=== PATIENT | male | born 1985 | race Caucasian/White ===

== ENCOUNTER 2016-10-30 15:24 | Emergency (ER) | payer BC ==
--- NOTE | 2016-10-30 16:50 | ERPHSYRPT ---
- History of Present Illness Time Seen by Provider: 10/30/16 16:48 Historian: patient, family Exam Limitations: no limitations Patient Subjective Stated Complaint: PT REPORTS LEFT FLANK PAIN BEGINNING A FEW HRS AGO-DENIES N/V/D-REPORTS BOWELS MOVED WITH NO DIFFICUTLY TODAY-DENIES FEVER- DENIES DIFFICUTLY WITH URINATION Triage Nursing Assessment: PT PINK WARM ET SBH-GLIOX-TYR NONTENDER-BOWEL SOUNDS PRESENT Physician History: The patient is a 31-year-old male with his complaining of a sudden onset of left abdominal left flank pain while at work. The pain was very intense but now it is let up. He denies nausea or vomiting. He had a bowel movement about that same time the pain occurred. His past medical history is unremarkable. Timing/Duration: today, hour(s) (5) Activities at Onset: none Quality: sharpness Abdominal Pain Onset Location: LLQ, flank Pain Radiation: no radiation Severity of Pain-Max: severe Severity of Pain-Current: moderate Modifying Factors: Improves With: nothing Associated Symptoms: denies symptoms Previous symptoms: no prior history Allergies/Adverse Reactions: No Known Drug Allergies Allergy (Unverified 10/30/16 15:38) Home Medications: No Home Meds 1 ea MC UD 10/30/16 [History] Hx Tetanus, Diphtheria Vaccination/Date Given: No Hx Influenza Vaccination/Date Given: No Hx Pneumococcal Vaccination/Date Given: No Immunizations Up to Date: Yes - Review of Systems Constitutional: No Fever, No Chills Eyes: No Symptoms Ears, Nose, & Throat: No Symptoms Respiratory: No Cough, No Dyspnea Cardiac: No Chest Pain, No Edema, No Syncope Abdominal/Gastrointestinal: Abdominal Pain, No Nausea, No Vomiting, No Diarrhea Genitourinary Symptoms: No Dysuria Musculoskeletal: No Back Pain, No Neck Pain Skin: No Rash Neurological: No Dizziness, No Focal Weakness, No Sensory Changes Psychological: No Symptoms Endocrine: No Symptoms Hematologic/Lymphatic: No Symptoms Immunological/Allergic: No Symptoms All Other Systems: Reviewed and Negative - Past Medical History Pertinent Past Medical History: No - Past Surgical History Past Surgical History: No - Social History Smoking Status: Never smoker Drug Use: none Patient Lives Alone: No - Nursing Vital Signs Nursing Vital Signs: Initial Vital Signs Temperature 97.6 F Temperature Source Oral Pulse Rate 88 Respiratory Rate 16 Blood Pressure [Right Arm] 127/67 Pain Intensity 7 - Physical Exam General Appearance: moderate distress Eye Exam: PERRL/EOMI, eyes nml inspection Ears, Nose, Throat Exam: normal ENT inspection, pharynx normal, moist mucous membranes Neck Exam: normal inspection, non-tender, supple, full range of motion Respiratory Exam: normal breath sounds, lungs clear, No respiratory distress Cardiovascular Exam: regular rate/rhythm, normal heart sounds Gastrointestinal/Abdomen Exam: tenderness (LLQ) Rectal Exam: not done Back Exam: normal inspection, normal range of motion, No CVA tenderness, No vertebral tenderness Extremity Exam: normal inspection, normal range of motion, pelvis stable Neurologic Exam: alert, oriented x 3, cooperative, normal mood/affect, nml cerebellar function, sensation nml, No motor deficits Skin Exam: normal color, warm, dry SpO2 Interpretation: normal SpO2: 100 Oxygen Delivery: Room Air Ordered Tests: Active Orders 24 hr Category Date Time Status IV Insertion STAT Care 10/30/16 16:51 Active CBC W DIFF Stat Lab 10/30/16 15:50 Completed CMP Stat Lab 10/30/16 15:50 Completed CULTURE,URINE Stat Lab 10/30/16 15:50 Received LIPASE Stat Lab 10/30/16 15:50 Completed UA W/ MICROSCOPIC Stat Lab 10/30/16 15:50 Completed Medication Summary Discontinued Medications Generic Name Dose Route Start Last Admin Trade Name Lucianq PRN Reason Stop Dose Admin Sodium Chloride 1,000 mls @ 999 mls/hr 10/30/16 16:51 10/30/16 17:38 Sodium Chloride 0.9% 1000 Ml IV 10/30/16 17:51 999 mls/hr .Q1H1M STA Administration Sodium Chloride Confirm 10/30/16 17:12 Sodium Chloride 0.9% 1000 Ml Administered 10/30/16 17:13 Dose 1,000 mls @ ud .ROUTE .STK-MED ONE Ketorolac Tromethamine 30 mg 10/30/16 16:51 10/30/16 17:38 Toradol 30 Mg Injection IV 10/30/16 16:52 30 mg STAT ONE Administration Ketorolac Tromethamine Confirm 10/30/16 17:12 Toradol 30 Mg Injection Administered 10/30/16 17:13 Dose 30 mg .ROUTE .STK-MED ONE Potassium Chloride 40 meq 10/30/16 17:11 10/30/16 18:03 Klor Con 10 Meq PO 10/30/16 17:12 40 meq STAT ONE Administration Potassium Chloride Confirm 10/30/16 17:21 Klor Con 10 Meq Administered 10/30/16 17:22 Dose 40 meq PO .STK-MED ONE Tamsulosin HCl 0.4 mg 10/30/16 16:53 10/30/16 17:37 Flomax 0.4 Mg PO 10/30/16 16:54 0.4 mg DAILY STA Administration Tamsulosin HCl Confirm 10/30/16 17:12 Flomax 0.4 Mg Administered 10/30/16 17:13 Dose 0.4 mg .ROUTE .STK-MED ONE Lab/Rad Data: Laboratory Result Diagrams 10/30/16 15:50 10/30/16 15:50 Laboratory Results 10/30/16 10/30/16 10/30/16 Range/Units 15:50 15:50 15:50 WBC 11.1 H (4.0-10.5) K/mm3 RBC 5.31 (4.1-5.6) M/mm3 Hgb 16.2 (12.5-18.0) gm/dl Hct 45.0 (42-50) % MCV 84.7 (78-100) fl MCH 30.5 (26-32) pg MCHC 36.0 (32-36) g/dl RDW 12.4 (11.5-14.0) % Plt Count 257 (150-450) K/mm3 MPV 10.8 H (6-9.5) fl Gran % 79.6 H (36.0-66.0) % Lymphocytes % 11.6 L (24.0-44.0) % Monocytes % 8.2 (0.0-12.0) % Eosinophils % 0.1 (0.00-5.0) % Basophils % 0.5 (0.0-0.4) % Basophils # 0.05 (0-0.4) Sodium 142 (136-145) mEq/L Potassium 3.1 L (3.5-5.1) mEq/L Chloride 103 (98-107) mEq/L Carbon Dioxide 23.5 (21-32) mEq/L Anion Gap 18.1 H (5-15) MEQ/L BUN 14 (9-20) mg/dL Creatinine 1.31 H (0.55-1.30) mg/dl Estimated GFR > 60 ML/MIN Glucose 153 H (70-110) MG/DL Calcium 10.0 (8.5-10.1) mg/dL Total Bilirubin 0.80 (0.2-1.0) mg/dL AST 17 (15-37) U/L ALT 23 (12-78) U/L Alkaline Phosphatase 80 (46-116) U/L Serum Total Protein 7.7 (6.4-8.2) gm/dL Albumin 4.7 (3.4-5.0) g/dL Lipase 102 (73-393) U/L Ur Collection Type CLEAN CATCH Urine Color YELLOW (YELLOW) Urine Appearance CLEAR (CLEAR) Urine pH 7.0 (5-6) Ur Specific [place] 1.025 (1.005-1.025) Urine Protein 30 (Negative) Urine Glucose (UA) NEGATIVE (NEGATIVE) mg/dL Urine Ketones >=160 (NEGATIVE) Urine Nitrite NEGATIVE (NEGATIVE) Urine Bilirubin NEGATIVE (NEGATIVE) Urine Urobilinogen 1 (0-1) mg/dL Urine WBC (Auto) NEGATIVE (NEGATIVE) Urine RBC (Auto) LARGE (0-5) Yuri/ul Urine Microscopic RBC 25-50 (0-2) /HPF Urine Microscopic WBC 2-5 (0-5) /HPF Ur Epithelial Cells RARE (FEW) /HPF Urine Bacteria FEW (NEGATIVE) /HPF Urine Mucus SLIGHT (NEGATIVE) /HPF Specimen Received [id number] - Progress Progress: improved Progress Note: 10/30/16 17:20 The patient urinated a significant amount just a few moments ago and he saw what he thought was of blood covered small stone in the bottom of the toilet. He is now completely pain-free. - Departure Time of Disposition: 18:26 Departure Disposition: Home Clinical Impression: Kidney stone, Hypokalemia Condition: Stable Critical Care Time: No Additional Instructions: You had a kidney stone that you passed while you were in the ER. Stay hydrated. Return to the ER if the condition returns.
[2016-10-30] MEDS ORDERED: TORAdol 30 mg Injection IV ONE (16:51)
[2016-10-30] MEDS ORDERED: Sodium Chloride 0.9% 1000 ML 1,000 ML IV STA (16:51)
[2016-10-30] MEDS ORDERED: Flomax 0.4 MG PO STA (16:53)
[2016-10-30 16:59] LABS: BASOPHIL % 0.5 % (0.0-0.4); Eosinophil % 0.1 % (0.00-5.0); Granulocytes % 79.6 % (36.0-66.0); Lymphocytes % 11.6 % (24.0-44.0); Mean Cell Volume 84.7 fl (78-100); Mean Corpuscular Hemoglobin 30.5 pg (26-32); Mean Platelet Volume 10.8 fl (6-9.5); Monocytes % 8.2 % (0.0-12.0); Platelet Count 257 K/mm3 (150-450); Red Blood Count 5.31 M/mm3 (4.1-5.6); Red Cell Distribution Width 12.4 % (11.5-14.0); White Blood Count 11.1 K/mm3 (4.0-10.5)
[2016-10-30 17:08] LABS: ALBUMIN 4.7 g/dL (3.4-5.0); ALKALINE PHOSPHATASE 80 U/L (46-116); ANION GAP 18.1 MEQ/L (5-15); BLOOD UREA NITROGEN 14 mg/dL (9-20); CHLORIDE 103 mEq/L (98-107); Carbon Dioxide 23.5 mEq/L (21-32); Glucose 153 MG/DL (70-110); LIPASE 102 U/L (73-393); Potassium 3.1 mEq/L (3.5-5.1); SGOT/AST 17 U/L (15-37); SGPT/ALT 23 U/L (12-78); SODIUM 142 mEq/L (136-145); Total Protein 7.7 gm/dL (6.4-8.2)
[2016-10-30] MEDS ORDERED: Klor Con 10 MEQ PO ONE ×2 (17:11→17:21)
[2016-10-30] MEDS ORDERED: TORAdol 30 mg Injection ONE (17:12)
[2016-10-30] MEDS ORDERED: Flomax 0.4 MG ONE (17:12)
[2016-10-30] MEDS ORDERED: Sodium Chloride 0.9% 1000 ML 1,000 ML ONE (17:12)
[2016-10-30 18:13] LABS: ADD URINE CULTURE? YES (NO); Bacteria FEW /HPF (NEGATIVE); COMPLETE URINE MICROSCOPIC? YES; Collection Type CLEAN CATCH; Epithelial Cells RARE /HPF (FEW); Mucus SLIGHT /HPF (NEGATIVE)
[2016-10-30 18:16] VITALS: BP 127/67; PULSE 88
[2016-10-30 18:28] VITALS: O2SAT 100
== END 2016-10-30 18:33 | disposition home or self-care (01) ==
LOC: ED 15:24
DX: N20.0 Calculus of kidney (principal); E87.6 Hypokalemia; R10.9 Unspecified abdominal pain
CPT/HCPCS: 36000; 36415; 80053; 81000; 83690; 85025; 87086; 96360; 99284; J1885; A9270-GY

== ENCOUNTER 2017-05-10 02:15 | Emergency (ER) | payer BC ==
--- NOTE | 2017-05-10 02:38 | ERPHSYRPT ---
- History of Present Illness Time Seen by Provider: 05/10/17 02:32 Historian: patient Exam Limitations: no limitations Patient Subjective Stated Complaint: Chest Pain Triage Nursing Assessment: Pt presents to the ED with complaints of chest pain, onset at 00:30 when he was sitting at work. Pt states he was opperating a machine at work when the pain began. Pt denies hx of complaint. PT states he became diaphoretic shortly after onset as well as SOB. 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 States pain is new onset, sharp, intermittent lasting approximately 2-3 minutes then resolving spontaneously. Patient notes that this occurred 4 to 5 times. Patient also had diaphoresis and nausea. Patient denies any shortness of breath, palpitation, dizziness or weakness. Patient has been doing well otherwise, without cough, fever, chills, vomiting, diarrhea or abdominal pain. Patient denies any tobacco, drugs or alcohol use. Patient denies any family history of coronary disease. Timing/Duration: today Activities at Onset: rest Quality: sharpness Location: substernal Chest Pain Radiation: no radiation Severity of Pain-Max: mild Severity of Pain-Current: none Modifying Factors: Improves With: nothing Associated Symptoms: nausea, diaphoresis, No vomiting, No palpitations, No heartburn, No abdominal pain, No shortness of breath, No cough, No fatigue, No weakness, No syncope, No headache, No dizziness Nitro Today/Relief: no nitro taken today Aspirin Treatment Today: no aspirin today Allergies/Adverse Reactions: No Known Drug Allergies Allergy (Unverified 10/30/16 15:38) Home Medications: No Home Meds [No Home Meds] 1 [facility] 10/30/16 [History] Hx Tetanus, Diphtheria Vaccination/Date Given: Yes Hx Influenza Vaccination/Date Given: No Hx Pneumococcal Vaccination/Date Given: No Immunizations Up to Date: No - Review of Systems Constitutional: No Fever, No Chills Eyes: No Symptoms Ears, Nose, & Throat: No Symptoms Respiratory: No Cough, No Dyspnea Cardiac: Chest Pain, No Edema, No Syncope Abdominal/Gastrointestinal: No Abdominal Pain, No Nausea, No Vomiting, No Diarrhea Genitourinary Symptoms: No Dysuria Musculoskeletal: No Back Pain, No Neck Pain Skin: No Rash Neurological: No Dizziness, No Focal Weakness, No Sensory Changes Psychological: No Symptoms Endocrine: No Symptoms All Other Systems: Reviewed and Negative - Past Medical History Pertinent Past Medical History: No Neurological History: No Pertinent History ENT History: No Pertinent History Cardiac History: No Pertinent History Respiratory History: No Pertinent History Endocrine Medical History: No Pertinent History Musculoskeletal History: No Pertinent History GI Medical History: No Pertinent History History: No Pertinent History Psycho-Social History: No Pertinent History Male Reproductive Disorders: No Pertinent History - Past Surgical History Past Surgical History: No Neuro Surgical History: No Pertinent History Cardiac: No Pertinent History Respiratory: No Pertinent History Gastrointestinal: No Pertinent History Genitourinary: No Pertinent History Musculoskeletal: No Pertinent History Male Surgical History: No Pertinent History - Social History Smoking Status: Never smoker Exposure to second hand smoke: No Drug Use: none Patient Lives Alone: No - Nursing Vital Signs Nursing Vital Signs: Initial Vital Signs Temperature 97.6 F 05/10/17 02:16 Pulse Rate 79 05/10/17 02:16 Respiratory Rate 13 05/10/17 02:16 Blood Pressure 134/91 05/10/17 02:16 O2 Sat by Pulse Oximetry 99 05/10/17 02:16 Pain Scale Pain Intensity 0 - Physical Exam General Appearance: no apparent distress, alert Eye Exam: PERRL/EOMI, eyes nml inspection Ears, Nose, Throat Exam: normal ENT inspection, moist mucous membranes Neck Exam: normal inspection, non-tender, supple, full range of motion Respiratory Exam: normal breath sounds, lungs clear, No respiratory distress Cardiovascular Exam: regular rate/rhythm, normal heart sounds Gastrointestinal/Abdomen Exam: soft, No tenderness, No mass Back Exam: normal inspection, No CVA tenderness, No vertebral tenderness Extremity Exam: normal inspection, normal range of motion Neurologic Exam: alert, oriented x 3, cooperative, normal mood/affect, sensation nml, No motor deficits Skin Exam: normal color, warm, dry SpO2: 99 Oxygen Delivery: Room Air - Course Nursing assessment & vital signs reviewed: Yes EKG Interpreted by Me: RATE (79), Sinus Rhythm, NORMAL AXIS, Non-specific ST Changes, Other (PVC noted, RVH present on EKG) Ordered Tests: Active Orders 24 hr Category Date Time Status Electrician Third STAT Care 05/10/17 02:25 Active Clean Catch Urine Specimen STAT Care 05/10/17 02:24 Active EKG-ER Only STAT Care 05/10/17 02:24 Active IV Insertion STAT Care 05/10/17 02:24 Active CHEST 2 VIEWS (PA AND LAT) Stat Exams 05/10/17 02:24 Taken BMP Stat Lab 05/10/17 02:37 Completed CBC W DIFF Stat Lab 05/10/17 02:37 Completed CK-Creatinine Phosphokinase Stat Lab 05/10/17 02:37 Completed D-DIMER QUANTITATION Stat Lab 05/10/17 02:37 Completed TROPONIN Q3H Lab 05/10/17 02:57 Completed TROPONIN Q3H Lab 05/10/17 05:14 Completed TROPONIN Q3H Lab 05/10/17 08:30 Ordered TROPONIN Q3H Lab 05/10/17 11:30 Ordered TROPONIN Q3H Lab 05/10/17 14:30 Ordered UA Stat Lab 05/10/17 02:37 Completed Urine Triage Profile Stat Lab 05/10/17 02:37 Completed Medication Summary Generic Name Dose Route Start Last Admin Trade Name Freq PRN Reason Stop Dose Admin Potassium Chloride 40 meq 05/10/17 10:00 05/10/17 03:17 Potassium Chl 40 Meq/30 Ml Oral Solution PO 06/09/17 09:59 Not Given DAILY FIFI Discontinued Medications Generic Name Dose Route Start Last Admin Trade Name Freq PRN Reason Stop Dose Admin Potassium Chloride 40 meq 05/10/17 03:18 05/10/17 03:22 Klor Con 10 Meq PO 05/10/17 03:19 40 meq STAT ONE Administration Potassium Chloride Confirm 05/10/17 03:19 Klor Con 10 Meq Administered 05/10/17 03:20 Dose 40 meq PO .STK-MED ONE Lab/Rad Data: Laboratory Result Diagrams 05/10/17 02:37 05/10/17 02:37 Laboratory Results 05/10/17 05/10/17 05/10/17 Range/Units 05:14 02:57 02:37 WBC (4.0-10.5) K/mm3 RBC (4.1-5.6) M/mm3 Hgb (12.5-18.0) gm/dl Hct (42-50) % MCV (78-100) fl MCH (26-32) pg MCHC (32-36) g/dl RDW (11.5-14.0) % Plt Count (150-450) K/mm3 MPV (6-9.5) fl Gran % (36.0-66.0) % Lymphocytes % (24.0-44.0) % Monocytes % (0.0-12.0) % Eosinophils % (0.00-5.0) % Basophils % (0.0-0.4) % Basophils # (0-0.4) D-Dimer (0-500) ng/mL Sodium (136-145) mEq/L Potassium (3.5-5.1) mEq/L Chloride (98-107) mEq/L Carbon Dioxide (21-32) mEq/L Anion Gap (5-15) MEQ/L BUN (9-20) mg/dL Creatinine (0.55-1.30) mg/dl Estimated GFR ML/MIN Glucose (70-110) MG/DL Calcium (8.5-10.1) mg/dL Creatine Kinase (39-308) U/L Troponin I < 0.017 < 0.017 (0.000-0.056) ng/ml Ur Collection Type VOID Urine Color LT.YELLOW (YELLOW) Urine Appearance CLEAR (CLEAR) Urine pH 7.0 (5-6) Ur Specific [place] 1.005 (1.005-1.025) Urine Protein NEGATIVE (Negative) Urine Ketones NEGATIVE (NEGATIVE) Urine Blood NEGATIVE (0-5) Yuri/ul Urine Nitrite NEGATIVE (NEGATIVE) Urine Bilirubin NEGATIVE (NEGATIVE) Urine Urobilinogen NORMAL (0-1) mg/dL Ur Leukocyte Esterase NEGATIVE (NEGATIVE) Urine Glucose NEGATIVE (NEGATIVE) mg/dL Urine Opiates Level (NEGATIVE) Ur Methadone (NEGATIVE) Urine Barbiturates (NEGATIVE) Ur Phencyclidine (PCP) (NEGATIVE) Urine Amphetamine (NEGATIVE) U Benzodiazepine Level (NEGATIVE) Urine Cocaine (NEGATIVE) Urine Marijuana (THC) (NEGATIVE) Specimen Received 05/10/17 0240 05/10/17 05/10/17 05/10/17 Range/Units 02:37 02:37 02:37 WBC 12.8 H (4.0-10.5) K/mm3 RBC 5.04 (4.1-5.6) M/mm3 Hgb 15.3 (12.5-18.0) gm/dl Hct 43.2 (42-50) % MCV 85.7 (78-100) fl MCH 30.4 (26-32) pg MCHC 35.4 (32-36) g/dl RDW 12.1 (11.5-14.0) % Plt Count 230 (150-450) K/mm3 MPV 10.0 H (6-9.5) fl Gran % 82.2 H (36.0-66.0) % Lymphocytes % 10.7 L (24.0-44.0) % Monocytes % 6.7 (0.0-12.0) % Eosinophils % 0.2 (0.00-5.0) % Basophils % 0.2 (0.0-0.4) % Basophils # 0.03 (0-0.4) D-Dimer < 200.00 (0-500) ng/mL Sodium 142 (136-145) mEq/L Potassium 3.3 L (3.5-5.1) mEq/L Chloride 101 (98-107) mEq/L Carbon Dioxide 29.1 (21-32) mEq/L Anion Gap 15.0 (5-15) MEQ/L BUN 9 (9-20) mg/dL Creatinine 1.05 (0.55-1.30) mg/dl Estimated GFR > 60 ML/MIN Glucose 109 (70-110) MG/DL Calcium 9.4 (8.5-10.1) mg/dL Creatine Kinase 271 (39-308) U/L Troponin I (0.000-0.056) ng/ml Ur Collection Type Urine Color (YELLOW) Urine Appearance (CLEAR) Urine pH (5-6) Ur Specific [place] (1.005-1.025) Urine Protein (Negative) Urine Ketones (NEGATIVE) Urine Blood (0-5) Yuri/ul Urine Nitrite (NEGATIVE) Urine Bilirubin (NEGATIVE) Urine Urobilinogen (0-1) mg/dL Ur Leukocyte Esterase (NEGATIVE) Urine Glucose (NEGATIVE) mg/dL Urine Opiates Level (NEGATIVE) Ur Methadone (NEGATIVE) Urine Barbiturates (NEGATIVE) Ur Phencyclidine (PCP) (NEGATIVE) Urine Amphetamine (NEGATIVE) U Benzodiazepine Level (NEGATIVE) Urine Cocaine (NEGATIVE) Urine Marijuana (THC) (NEGATIVE) Specimen Received 05/10/17 Range/Units 02:37 WBC (4.0-10.5) K/mm3 RBC (4.1-5.6) M/mm3 Hgb (12.5-18.0) gm/dl Hct (42-50) % MCV (78-100) fl MCH (26-32) pg MCHC (32-36) g/dl RDW (11.5-14.0) % Plt Count (150-450) K/mm3 MPV (6-9.5) fl Gran % (36.0-66.0) % Lymphocytes % (24.0-44.0) % Monocytes % (0.0-12.0) % Eosinophils % (0.00-5.0) % Basophils % (0.0-0.4) % Basophils # (0-0.4) D-Dimer (0-500) ng/mL Sodium (136-145) mEq/L Potassium (3.5-5.1) mEq/L Chloride (98-107) mEq/L Carbon Dioxide (21-32) mEq/L Anion Gap (5-15) MEQ/L BUN (9-20) mg/dL Creatinine (0.55-1.30) mg/dl Estimated GFR ML/MIN Glucose (70-110) MG/DL Calcium (8.5-10.1) mg/dL Creatine Kinase (39-308) U/L Troponin I (0.000-0.056) ng/ml Ur Collection Type Urine Color (YELLOW) Urine Appearance (CLEAR) Urine pH (5-6) Ur Specific [place] (1.005-1.025) Urine Protein (Negative) Urine Ketones (NEGATIVE) Urine Blood (0-5) Yuri/ul Urine Nitrite (NEGATIVE) Urine Bilirubin (NEGATIVE) Urine Urobilinogen (0-1) mg/dL Ur Leukocyte Esterase (NEGATIVE) Urine Glucose (NEGATIVE) mg/dL Urine Opiates Level NEG. (NEGATIVE) Ur Methadone NEG. (NEGATIVE) Urine Barbiturates NEG. (NEGATIVE) Ur Phencyclidine (PCP) NEG. (NEGATIVE) Urine Amphetamine NEG. (NEGATIVE) U Benzodiazepine Level NEG. (NEGATIVE) Urine Cocaine NEG. (NEGATIVE) Urine Marijuana (THC) NEG. (NEGATIVE) Specimen Received - Progress Progress: improved Air Movement: good Progress Note: 05/10/17 04:03 patient remained pain-free and hemodynamically stable throughout stay in ED. Blood Culture(s) Obtained: No Antibiotics given: No Discussed with Dr.: Other (Dr. Penn, case work aide was notified about patient. Recommended another set of enzymes. If normal patient can follow-up with Dr. Penn in office) Counseled pt/family regarding: lab results, diagnosis, need for follow-up, rad results - Departure Time of Disposition: 06:05 Departure Disposition: Home Clinical Impression: Chest pain Condition: Stable Critical Care Time: No Referrals: FABIANA SANTA FNP [Primary Care Provider] - Instructions: Chest Pain Additional Instructions: Follow-up with Dr. Penn, case work aide. Call [phone] for appointment Return for worse chest pain, shortness of breath, dizziness, weakness or any problems
[2017-05-10 02:43] LABS: BASOPHIL % 0.2 % (0.0-0.4); Bilirubin NEGATIVE (NEGATIVE); Blood NEGATIVE Ery/ul (0-5); COMPLETE URINE MICROSCOPIC? NO; Collection Type VOID; Eosinophil % 0.2 % (0.00-5.0); Glucose NEGATIVE (NEGATIVE); Granulocytes % 82.2 % (36.0-66.0); Leukocyte Esterase NEGATIVE (NEGATIVE); Lymphocytes % 10.7 % (24.0-44.0); Mean Cell Volume 85.7 fl (78-100); Mean Corpuscular Hemoglobin 30.4 pg (26-32); Monocytes % 6.7 % (0.0-12.0); Platelet Count 230 K/mm3 (150-450); Red Blood Count 5.04 M/mm3 (4.1-5.6); Red Cell Distribution Width 12.1 % (11.5-14.0); White Blood Count 12.8 K/mm3 (4.0-10.5)
[2017-05-10 02:54] LABS: BLOOD UREA NITROGEN 9 mg/dL (9-20); CHLORIDE 101 mEq/L (98-107); Carbon Dioxide 29.1 mEq/L (21-32); Glucose 109 MG/DL (70-110); Potassium 3.3 mEq/L (3.5-5.1); SODIUM 142 mEq/L (136-145)
[2017-05-10] MEDS ORDERED: Klor Con 10 MEQ PO ONE ×2 (03:18→03:19)
[2017-05-10 05:57] VITALS: BP 127/64; PULSE 84
[2017-05-10 06:08] VITALS: O2SAT 99
--- NOTE | 2017-05-10 09:15 | XRAY ---
Indication: Chest pain. Comparison: None PA/lateral chest hyperinflated and clear. Heart is not enlarged. Bony thorax intact. Impression: Nonacute hyperinflated chest.
[2017-05-10] MEDS ORDERED: POTASSIUM CHL 40 MEQ/30 ML ORAL SOLUTION PO SCH (10:00)
== END 2017-05-10 06:17 | disposition home or self-care (01) ==
LOC: ED 02:15
DX: R07.89 Other chest pain (principal); R11.0 Nausea
CPT/HCPCS: 36000; 36415; 71020; 80048; 80307; 81002; 82550; 84484; 85025; 85379; 93005; 93041; 99284; A9270-GY